=== PATIENT | male | born 1955 | race Caucasian/White ===

== ENCOUNTER 2021-09-05 06:47 | Emergency (ER) | payer BC, SELFPAY ==
[2021-09-05 06:50] VITALS: BP 141/80; PULSE 88; RESP 20; TEMP 35.8; O2SAT 94; BMI 34.4
--- NOTE | 2021-09-05 07:01 | EKG12_ITS ---
Test Reason : SOB Blood Pressure : / mmHG Vent. Rate : 081 BPM Atrial Rate : 081 BPM P-R Int : 176 ms QRS Dur : 104 ms QT Int : 378 ms P-R-T Axes : 015 043 060 degrees QTc Int : 439 ms Normal sinus rhythm Normal ECG Confirmed by QUINCY MASON, JESSEE ([id number]), senior editor MARY ANN LIU ([id number]) on 09/07/2021 9:41:24 AM Referred By: ADITI Confirmed By:JESSEE MATHEW MD
--- NOTE | 2021-09-05 07:02 | EX.ED.DYSGE1 ---
HPI History of Present Illness Chief Complaint: Shortness of Breath Informant: patient and spouse/S.O. Narrative Narrative: 66-year-old male presents to the emergency department with shortness of breath and burning in his chest. Patient states that he woke from his sleep feeling that there is stomach contents coming up to his chest causing him to be unable to breathe. He notes a burning sensation in the midline of his chest. He states he had one episode of emesis which she describes as bilious. No reported fevers. He went to bed feeling fine. However he states he ate right up till the time he went to bed this is the second time that he is woken with the symptoms he used to be on an antacid medicine but does not currently take it [facility] Medical History no medical history Home Medications omeprazole 10 mg PO DAILY 10/13/17 [History Last Taken 10/23/17 06:00] acetaminophen 1,000 mg PO Q8 #60 tab 10/24/17 [Rx Last Taken Unknown] morphine 15 mg PO BID #30 tablet 10/24/17 [Rx Last Taken Unknown] oxycodone 5 - 10 mg PO Q4H PRN PRN #60 tablet 10/24/17 [Rx Last Taken Unknown] sennosides-docusate sodium 2 tab PO BID #30 tab 10/24/17 [Rx Last Taken Unknown] albuterol sulfate [Ventolin HFA] 2 puff INHALATION Q4H PRN PRN #1 inhaler 09/05/21 [Rx Last Taken Unknown] omeprazole 40 mg PO DAILY #30 cap 09/05/21 [Rx Last Taken Unknown] Allergy/AdvReac Type Severity Reaction Status Date / Time No Known Allergies Allergy Verified 10/13/17 14:22 Family History no significant family his Surgical History no surgical history Social History (Updated 09/05/21 @ 07:[address] Jh Gamez, ) Smoking Status: Former smoker substance use type: does not use ROS ROS ED Constitutional Constitutional ED: Denies chills or weight loss Eyes Eyes: Denies change in vision or diplopia ENT ENT ED: Denies ear pain, rhinorrhea or sore throat Cardiovascular Cardiovascular: Reports chest pain; Denies orthopnea, palpitations or racing heartbeat Respiratory/Chest Respiratory/Chest: Reports dyspnea; Denies cough or orthopnea Gastrointestinal Gastrointestinal: Denies abdominal pain, diarrhea, nausea or vomiting Genitourinary Genitourinary ED: Denies dysuria, hematuria or urinary frequency Musculoskeletal Musculoskeletal: Denies arthralgias or myalgias Integumentary Denies abscess or rash Neurologic Neurologic: Denies headache(s) or weakness Psychiatric Psychiatric: Denies anxiety, depression, suicidal ideation or suicidal thoughts Endocrine Endocrinology: Denies polydipsia, polyphagia or polyuria Allergic/Immunologic Allergic/Immunologic ED: Denies mouth swelling, tongue swelling or urticaria EXAM Physical Exam Const Vital Signs: 09/05/21 06:50 09/05/21 07:24 Temperature 96.5 F L Temperature Source Temporal Pulse Rate 88 95 Respiratory Rate 20 H 18 Blood Pressure 141/80 H Blood Pressure Mean 100 Pulse Ox 94 Oxygen Delivery Method Room Air Positive well nourished, well developed and obese General Appearance ED: well developed Nutritional Appearance: obese HEENT Reports normocephalic, head/scalp atraumatic, TM's clear and moist mucous membranes Negative for trauma Tympanic Membrane ED: Yes TM's clear Eyes PERRL and EOMs intact bilaterally Neck no lymphadenopathy, supple and no JVD Resp normal respiratory effort and clear to auscultation bilaterally Cardio regular rate, regular rhythm and no murmurs GI normal to inspection, nondistended, normoactive bowel sounds and non-tender Palpation: soft Back/Spine no CVA tenderness and normal ROM Extremity normal to inspection General Extremety ED: Negative for edema General Extremity: Negative for edema Neuro oriented x3 and CN's II-XII intact bilaterally Sensorium / Orientation: alert Motor Exam: strength 5/5 throughout Psych mental status grossly normal Mood & Affect: Negative for depressed or tearful Skin no rashes or lesions noted and no wounds MDM MDM MDM Narrative Medical decision making narrative: My interpretation of the chest x-ray is no acute process. Patient received a breathing treatment and GI cocktail is feeling better. Clinically I think the patient has GERD and most likely had aspiration during his sleep which resulted in some bronchospasm. I will prescribe him his omeprazole as well as an albuterol MDI. Follow-up with primary care. Radiography Diagnostic Testing: Clinical Impression(s) from Imaging Studies Chest X-Ray 09/05/21 07:35 IMPRESSION: Normal x-ray examination of the chest. Electronically Signed: Merrill Drew MD at 7:57 EDT Tel , Service support , EKG Initial EKG: Attestation: I personally reviewed and interpreted this EKG as follows: Comments: Normal sinus rhythm with a ventricular rate of 81 bpm Discharge Plan Triage Chief Complaint: Shortness of Breath ED Provider: Jh Gamez Dx/Rx/DC Orders Clinical Impression: Gastroesophageal reflux disease, Aspiration into respiratory tract Instructions: ED GERD (Adult) Prescriptions: New omeprazole 40 mg capsule,delayed release(DR/EC) 40 mg PO DAILY Qty: 30 RF: 0 albuterol sulfate [Ventolin HFA] 1 INHALER inhaler 2 puff inhalation Q4H PRN PRN (Reason: Wheezing) Qty: 1 RF: 0 No Action omeprazole 10 MG capsule 10 mg PO DAILY RF: 0 sennosides-docusate sodium 1 TABLET tablet 2 tab PO BID Qty: 30 RF: 0 acetaminophen 500 MG tablet 1,000 mg PO Q8 Qty: 60 RF: 0 morphine 15 MG tablet 15 mg PO BID Qty: 30 RF: 0 oxycodone 5 MG tablet 5 - 10 mg PO Q4H PRN PRN (Reason: Mod-Severe Pain (4-10/10)) Qty: 60 RF: 0 Primary Care Provider: Gómez Matos III Referrals: Gómez Matos III, MD [Primary Care Provider] - Friend,DO Srikanth [STAFF PHYSICIAN] - (as needed for GI evaluation) Disposition Disposition: Home, Self Care
[2021-09-05] MEDS: Ipratropium/Albuterol Sulfate 3 ML AMPUL.NEB INHALATION (07:14)
[2021-09-05 07:24] VITALS: PULSE 95; RESP 18
[2021-09-05] MEDS: Ondansetron ODT 4 MG Tablet PO (07:32)
[2021-09-05] MEDS: Mag Hydrox/Al Hydrox/Simeth 30 ML UDC PO (07:32)
--- NOTE | 2021-09-05 07:35 | RAD_ITS ---
STUDY: X-RAY CHEST REASON FOR EXAM: Male, 66 years old. DYSPNEA TECHNIQUE: Single AP portable view of the chest. COMPARISON: None. FINDINGS: The lungs are clear and expanded. There is no demonstrated pleural abnormality. Normal size heart. Normal mediastinum and leah. Normal visualized pulmonary arteries. Normal visualized aortic arch and descending thoracic aorta. Normal visualized thoracic spine. Normal visualized ribs, clavicles, and shoulders. There is no demonstrated abnormality of the visualized soft tissue structures of the upper abdomen. RAD/Chest 1 View (Portable) IMPRESSION: Normal x-ray examination of the chest. Electronically Signed: Merrill Drew MD at 7:57 EDT Tel , Service support ,
[2021-09-05 08:15] VITALS: PULSE 89; RESP 17; O2SAT 97
== END 2021-09-05 08:16 | disposition home or self-care (01) ==
PROVIDERS: Emergency Provider Emergency Medicine; PCP Family Medicine
DX: K21.9 Gastro-esophageal reflux disease without esophagitis (principal); T17.908A Unspecified foreign body in respiratory tract, part unspecified causing other injury, initial encounter; E66.9 Obesity, unspecified; Z87.891 Personal history of nicotine dependence; Z79.899 Other long term (current) drug therapy
CPT/HCPCS: 71045; 93005; 94640; 99282

== ENCOUNTER → 2022-06-16 | Outpatient (CLI) | payer BC, SELFPAY ==
--- NOTE | 2022-06-16 11:49 | RAD_ITS ---
STUDY: X-RAY CHEST REASON FOR EXAM: Male, 67 years old. SOB TECHNIQUE: PA and lateral views of the chest. COMPARISON: Comparison made with prior study from the 2020. FINDINGS: Hyperinflation. There is no demonstrated pleural abnormality. Normal size heart. Normal mediastinum and leah. Normal visualized pulmonary arteries. There is atherosclerotic calcification of the aortic arch with tortuosity. There are diffuse degenerative changes of the visualized thoracic spine. There is degenerative osteoarthritis of the bilateral shoulders. There is no demonstrated abnormality of the visualized soft tissue structures of the upper abdomen. RAD/Chest PA and Lateral IMPRESSION: Stable examination. No acute abnormality is seen. Electronically Signed: Huy Park MD at 12:27 EDT ,
== END | disposition home or self-care (01) ==
PROVIDERS: PCP Family Medicine; Referring Provider Internal Medicine Pulmonary Disease; Visit Provider Internal Medicine Pulmonary Disease
DX: R06.02 Shortness of breath (principal)
CPT/HCPCS: 71046

== ENCOUNTER → 2022-12-27 | Outpatient (CLI) | payer MEDICARE, OTHER, SELFPAY ==
--- NOTE | 2022-12-27 14:13 | MRI_ITS ---
STUDY: MRI CERVICAL SPINE WITHOUT CONTRAST REASON FOR EXAM: Male, 67 years old patient with cervical stenosis. TECHNIQUE: Standardized fat and water weighted pulse sequences were obtained in the sagittal and axial planes. COMPARISON: None FINDINGS: Normal foramen magnum and brainstem-cervical cord junction. Normal craniovertebral junction. Normal anterior atlantoaxial articulation. Normal odontoid process. Normal cervical lordosis. Normal vertebral bodies and posterior osseous elements. C2-3: Normal endplates. Normal disc height, signal and morphology. Normal central canal and intervertebral neural foramina. C3-4: There is a right central broad disc protrusion. There is severe right-sided neural foraminal narrowing with potential neural impingement. The left neural foramen is moderately narrowed. There is uncovertebral and facet arthropathy. There is mild central acquired canal stenosis. C4-5: There is a large broad central disc protrusion. There is moderately severe central canal stenosis with potential cord impingement. There is severe neural foraminal narrowing with probable nerve root impingement. There is bilateral uncovertebral and facet joint arthropathy. C5-6: There is a disc bulge and osteophyte complex. There is severe neural foraminal narrowing with probable nerve impingement. There is narrowing of the disc. There is hypertrophic uncovertebral joint hypertrophy. There is moderate acquired central canal stenosis with possible cord impingement. C6-7: There is a broad central disc protrusion. There is spondylosis. There is moderate central canal stenosis. There is severe bilateral neural foraminal narrowing with uncovertebral joint hypertrophy and potential nerve impingement. C7-T1: Normal endplates. Normal disc height, signal and morphology. Normal central canal and intervertebral neural foramina. Normal cervical cord. There is no demonstrated cervical cord syrinx cavity. Normal visualized soft tissue structures. MRI/Spine Cervical (Routine) IMPRESSION: Moderately severe multilevel degenerative disc disease and degenerative arthropathy of the cervical spine with neural foraminal narrowing, central canal stenosis and potential nerve impingement, as described. Electronically Signed: Jessie Almodovar MD at 5:03 EST ,
== END | disposition home or self-care (01) ==
PROVIDERS: PCP Family Medicine; Referring Provider Orthopaedic Surgery; Visit Provider Orthopaedic Surgery
DX: M48.02 Spinal stenosis, cervical region (principal); M47.22 Other spondylosis with radiculopathy, cervical region; M50.30 Other cervical disc degeneration, unspecified cervical region
CPT/HCPCS: 72141

== ENCOUNTER → 2023-01-25 | Outpatient (CLI) | payer MEDICARE, OTHER, SELFPAY ==
--- NOTE | 2023-01-25 14:09 | NEURO ---
NCS and/or EMG Patient Report Ordering Doctor: Bo Briones DATE OF SERVICE: 01/25/23 Yaya presents for electrodiagnostic testing of the left upper limb. He reports tingling in the left arm. Electrodiagnostic findings: Left median motor nerve demonstrates prolonged latency with normal amplitude and reduced conduction velocity. Normal left ulnar motor response, including conduction across the elbow. Normal median ulnar F-wave. Prolonged left median sensory latency at the wrist. On needle EMG, all muscles tested in the left upper limb showed no evidence of denervation with normal motor unit action potentials. Electrodiagnostic impression: This is an abnormal study in the left upper limb. 1. Electrodiagnostic findings suggestive of left-sided median mononeuropathy. This is consistent with a mild left carpal tunnel syndrome. 2. No electrodiagnostic evidence is noted for cervical radiculopathy.
== END | disposition home or self-care (01) ==
LOC: PSN 09:38
PROVIDERS: PCP Family Medicine; Visit Provider Orthopaedic Surgery
DX: M47.22 Other spondylosis with radiculopathy, cervical region (principal)
CPT/HCPCS: 95886; 95910